=== PATIENT | male | born 1935 | race Caucasian/White ===

== ENCOUNTER 2020-10-17 15:03 | Emergency (ER) | payer MEDICARE, OTHER ==
[~2020-10-17] VITALS: Ht 180.3 cm; Wt 80.3 kg
[~2020-10-17 15:03] MED LIST: ASPI81CH PO; ESOM20 PO; FISH1000 PO; FOLATE PO; GLIP2.5ER PO; GLUCOPHAGE1000 M1 PO; PERI4 PO; ROSU10TA PO; ZESTRIL40 M1 PO
[2020-10-17 16:12] LABS: BASOPHILS ABSOLUTE AUTO 0.01 K/mm3 (0.00-0.23); BASOPHILS PERCENT AUTO 0 % (0-2); EOSINOPHILS PERCENT AUTO 0 % (0-6); Hematocrit 19.5 % (37.0-53.0); Hemoglobin 6.4 g/dL (13.5-17.5); IMMATURE GRAN ABSOLUTE AUTO 0.27 K/mm3 (0.00-0.10); IMMATURE GRAN PERCENT AUTO 2 % (0-1); LYMPHOCYTES ABSOLUTE AUTO 1.24 K/mm3 (0.84-5.20); LYMPHOCYTES PERCENT AUTO 8 % (21-46); MONOCYTES ABSOLUTE AUTO 0.94 K/mm3 (0.16-1.47); MONOCYTES PERCENT AUTO 6 % (4-13); Mean Corpuscular HGB 28.8 pg (26.0-34.0); Mean Corpuscular HGB Conc 32.8 g/dL (31.5-36.5); Mean Corpuscular Volume 88 fL (80-100); Mean Platelet Volume 9.1 fL (9.1-12.4); NEUTROPHILS ABSOLUTE AUTO 12.64 K/mm3 (1.96-9.15); NEUTROPHILS PERCENT AUTO 84 % (41-73); Platelet Count 404 K/mm3 (150-400); RDW Coefficient Variation 13.2 % (11.7-14.2); RDW Standard Deviation 42.2 fL (35.1-46.3); Red Blood Cell Count 2.22 M/mm3 (4.30-5.90)
[2020-10-17 16:28] LABS: Alanine Aminotransfer (ALT/SGP 47 U/L (12-78); Albumin, Blood 2.6 g/dL (3.4-5.0); Albumin/Globulin Ratio 0.7 (0.8-1.8); Alk Phos 724 U/L (50-136); Anion Gap 6 mmol/L (6-16); Aspartate Aminotrans (AST/SGOT 42 U/L (12-37); Bilirubin, Total 0.3 mg/dL (0.1-1.0); Blood Urea Nitrogen 33 mg/dL (8-24); CO2, Blood 28 mmol/L (21-32); Calcium, Blood 8.5 mg/dL (8.5-10.1); Chloride, Blood 92 mmol/L (98-108); Globulin, Blood 3.9 g/dL (2.2-4.0); Glomerular Filtration Rate >60 (60-); Glucose, Blood 285 mg/dL (70-99); Potassium, Blood 4.4 mmol/L (3.5-5.5); Sodium, Blood 126 mmol/L (136-145); Total Protein, Blood 6.5 g/dL (6.4-8.2)
[2020-10-17 16:46] LABS: International Normalized Ratio 1.21; Prothrombin Time Results 12.9 Sec (9.7-11.5)
[2020-10-17 18:25] LABS: Source, Urine Clean Catch
[2020-10-17 18:30] LABS: Bilirubin, Urine Neg (Neg); Blood, Urine 4+ (Neg); Glucose Qualitative, Urine 2+ (Neg); Ketones, Urine Neg (Neg); Leukocyte Esterase, Urine 1+ (Neg); Nitrite, Urine Neg (Neg); Protein, Urine 2+ (Neg); Specific Gravity, Urine 1.015 (1.003-1.022); Urobilinogen, Urine NORM (Normal)
[2020-10-17 18:43] LABS: Appearance, Urine Hazy (Clear); Color, Urine Yellow (P-Yellow)
[2020-10-17 18:52] LABS: Amorphous Light (0-Heavy); Bacteria Few /hpf; Squamous Epithelial Cells Rare /hpf (Few)
[2020-10-17] MEDS ORDERED: FLONASE ALLERG9.9 M2 (20:11)
[2020-10-17] MEDS ORDERED: FLOVENT HFA12 GM INH (20:13)
[2020-10-17] MEDS ORDERED: Ventolin/Prove6.7 GM INH (20:15)
[2020-10-17] MEDS ORDERED: DEPO-TESTO200 MG/13 (20:16)
[2020-10-17] MEDS ORDERED: IPRAT-ALBUT 0.5-3 ML (20:16)
[2020-10-17 21:35] LABS: SARS-Cov-2 (COVID-19) PCR, MMC NEGATIVE (NEGATIVE)
== END 2020-10-17 22:13 | disposition home or self-care (01) ==
LOC: ER 15:03
PROVIDERS: Physician Assistant
DX: K29.71 Gastritis, unspecified, with bleeding (principal); D64.9 Anemia, unspecified; E11.9 Type 2 diabetes mellitus without complications; K21.9 Gastro-esophageal reflux disease without esophagitis; Z20.822 Contact with and (suspected) exposure to COVID-19; I10 Essential (primary) hypertension; Z91.09 Other allergy status, other than to drugs and biological substances; Z79.899 Other long term (current) drug therapy
CPT/HCPCS: 36415; 36430; 51798; 74177; 80053; 81001; 82272; 85025; 85610; 85730; 86850; 86900; 86901; 86923; 87086; 93005; 93010; 96365-59; 96376; 99285-25; C9113; J7030; P9016; Q9967; U0004

== ENCOUNTER 2020-11-12 13:06 | Emergency (ER) | payer OTHER, MEDICARE ==
[~2020-11-12] VITALS: Ht 180.3 cm; Wt 75.3 kg
[~2020-11-12 13:06] MED LIST changes: +DEPO-TESTO200 MG/13; +FLONASE ALLERG9.9 M2; +FLOVENT HFA12 GM INH; +IPRAT-ALBUT 0.5-3 ML; +Ventolin/Prove6.7 GM INH
[2020-11-12] MEDS ORDERED: TRAM50 PO (13:23)
[2020-11-12] MEDS ORDERED: OMEP20ER PO (13:23)
[2020-11-12] MEDS ORDERED: FERSU300 PO (13:23)
[2020-11-12 13:53] LABS: BASOPHILS ABSOLUTE AUTO 0.03 K/mm3 (0.00-0.23); BASOPHILS PERCENT AUTO 0 % (0-2); EOSINOPHILS ABSOLUTE AUTO 0.02 K/mm3 (0.00-0.68); EOSINOPHILS PERCENT AUTO 0 % (0-6); IMMATURE GRAN ABSOLUTE AUTO 1.19 K/mm3 (0.00-0.10); IMMATURE GRAN PERCENT AUTO 8 % (0-1); LYMPHOCYTES ABSOLUTE AUTO 2.69 K/mm3 (0.84-5.20); LYMPHOCYTES PERCENT AUTO 19 % (21-46); MONOCYTES ABSOLUTE AUTO 0.75 K/mm3 (0.16-1.47); MONOCYTES PERCENT AUTO 5 % (4-13); Mean Corpuscular HGB 27.8 pg (26.0-34.0); Mean Corpuscular HGB Conc 30.6 g/dL (31.5-36.5); Mean Corpuscular Volume 91 fL (80-100); NEUTROPHILS ABSOLUTE AUTO 9.55 K/mm3 (1.96-9.15); NEUTROPHILS PERCENT AUTO 67 % (41-73); NRBC Auto 12.6 /100 WBC (0.0-0.2); RDW Coefficient Variation 20.7 % (11.7-14.2); Red Blood Cell Count 1.98 M/mm3 (4.30-5.90); White Blood Cell Count 14.23 K/mm3 (4.00-11.30)
[2020-11-12 14:14] LABS: Platelet Count 47 K/mm3 (150-400)
[2020-11-12 14:15] LABS: Hemoglobin 5.5 g/dL (13.5-17.5)
[2020-11-12 14:24] LABS: Alanine Aminotransfer (ALT/SGP 31 U/L (12-78); Albumin, Blood 2.5 g/dL (3.4-5.0); Albumin/Globulin Ratio 0.8 (0.8-1.8); Anion Gap 9 mmol/L (6-16); Aspartate Aminotrans (AST/SGOT 210 U/L (12-37); Bilirubin, Total 1.8 mg/dL (0.1-1.0); Blood Urea Nitrogen 89 mg/dL (8-24); CO2, Blood 24 mmol/L (21-32); Calcium, Blood 8.2 mg/dL (8.5-10.1); Chloride, Blood 104 mmol/L (98-108); Creatinine, Blood 1.68 mg/dL (0.60-1.20); Globulin, Blood 3.3 g/dL (2.2-4.0); Glomerular Filtration Rate 41 (60-); Glucose, Blood 269 mg/dL (70-99); Sodium, Blood 137 mmol/L (136-145); Total Protein, Blood 5.8 g/dL (6.4-8.2)
[2020-11-12 14:45] LABS: Alk Phos >2330 U/L (50-136)
== END 2020-11-12 19:50 | disposition short-term general hospital (02) ==
LOC: ER 13:06
PROVIDERS: Emergency Medicine
DX: D64.9 Anemia, unspecified (principal); K92.2 Gastrointestinal hemorrhage, unspecified; E11.9 Type 2 diabetes mellitus without complications; I10 Essential (primary) hypertension; K21.9 Gastro-esophageal reflux disease without esophagitis; E78.5 Hyperlipidemia, unspecified; Z91.09 Other allergy status, other than to drugs and biological substances; Z79.899 Other long term (current) drug therapy; Z79.84 Long term (current) use of oral hypoglycemic drugs
CPT/HCPCS: 36430; 80053; 85025; 86850; 86900; 86901; 86923; 93005; 93010; 96365; 96366; 99285-25; C9113; J7030; P9016